=== PATIENT | female | born 1990 | race African-American/Black ===

== ENCOUNTER 2017-01-03 13:54 | Emergency (ER) | payer OTHER ==
[2017-01-03] MEDS ORDERED: PREDNISONE 20 MG TABLET PO ONE (14:08)
[2017-01-03] MEDS ORDERED: NORMAL SALINE 1000 ML 1,000 ML IV PRN (14:08)
[2017-01-03] MEDS ORDERED: DIPHENHYDRAMINE HCL 50 MG/ML VIAL IV ONE (14:08)
[2017-01-03] MEDS ORDERED: FAMOTIDINE INJ/PF 20 MG/2 ML SDV IV ONE (14:08)
--- NOTE | 2017-01-03 14:09 | ER Document Report ---
ED Allergic Reaction - General Chief Complaint: Allergic Reaction Stated Complaint: POSSIBLE ALLERGIC REACTION Time Seen by Provider: 01/03/17 14:04 Mode of Arrival: Ambulatory Information source: Patient TRAVEL OUTSIDE OF THE [place] IN LAST 30 DAYS: No - HPI Patient complains to provider of: Allergic reaction Onset: Just prior to arrival Onset/Duration: Gradual Quality of pain: No pain Identified cause: Yes Food exposure: Shellfish Skin rash / itching: Diffuse Similar symptoms previously: Yes Recently seen / treated by doctor: No Notes: Patient is a 26-year-old female with a fish allergy who presents to the emergency room complaining of diffuse itching consistent with an allergic reaction, states she was eating at a [employer] grill and although she did not eat fish she believes the food she ate was possibly contaminated with fish from the [place], she denies any difficulty swallowing or breathing - Related Data Allergies/Adverse Reactions: shellfish derived Allergy (Verified 01/03/17 14:05) Sulfa (Sulfonamide Antibiotics) Allergy (Verified 01/03/17 14:05) Past Medical History - General Information source: Patient - Social History Smoking Status: Never Smoker Chew tobacco use (# tins/day): No Frequency of alcohol use: None Drug Abuse: None Family History: Reviewed & Not Pertinent Patient has suicidal ideation: No Patient has homicidal ideation: No Pulmonary Medical History: Reports: Hx Asthma Renal/ Medical History: Denies: Hx Peritoneal Dialysis Past Surgical History: Reports: Hx Oral Surgery - Immunizations Hx Diphtheria, Pertussis, Tetanus Vaccination: No Review of Systems - Review of Systems Constitutional: No symptoms reported EENT: No symptoms reported Cardiovascular: No symptoms reported Respiratory: No symptoms reported Gastrointestinal: No symptoms reported Genitourinary: No symptoms reported Female Genitourinary: No symptoms reported Musculoskeletal: No symptoms reported Skin: See HPI Hematologic/Lymphatic: No symptoms reported Neurological/Psychological: No symptoms reported -: Yes All other systems reviewed and negative Physical Exam - Notes Notes: - General General appearance: Appears well, Alert In distress: None - HEENT Head: Normocephalic, Atraumatic Eyes: Normal Conjunctiva: Normal Extraocular movements intact: Yes Eyelashes: Normal Pupils: PERRL - Respiratory Respiratory status: No respiratory distress, lungs are clear to auscultation - Cardiovascular Rhythm: Regular - Abdominal Inspection: Normal - Back Back: Normal - Extremities General upper extremity: Normal inspection General lower extremity: Normal inspection - Neurological Neuro grossly intact: Yes Orientation: AAOx4 [place] Coma Scale Eye Opening: Spontaneous [place] Coma Scale Verbal: Oriented [place] Coma Scale Motor: Obeys Commands Brayan Coma Scale Total: 15 - Psychological Associated symptoms: Normal affect, Normal mood - Skin Skin Temperature: Warm Skin Moisture: Dry Skin Color: Normal - HEENT Pharynx: No: Erythema, Exudate, Tonsillar hypertrophy, Uvular edema, Potential airway comprom. Neck: Normal Course - Re-evaluation Re-evalutation: 01/03/17 14:46 Patient resting comfortably, no distress, reports feeling much better, physical exam findings unremarkable, patient will be discharged with prescriptions for symptomatic relief of allergic reaction, advised to return if symptoms worsen, patient acknowledges understanding and agreement with this plan Discharge - Discharge Clinical Impression: Acute allergic reaction Qualifiers: Encounter type: initial encounter Qualified Code(s): T78.40XA - Allergy, unspecified, initial encounter Condition: Stable Disposition: HOME, SELF-CARE Instructions: Acute Allergic Reaction ([facility]) Additional Instructions: Follow up with your primary care provider in one to 2 days. Return to the emergency room immediately if symptoms worsen or any additional concerns. Prescriptions: Diphenhydramine HCl [Benadryl 25 Mg Capsule] 25 mg PO Q6 #30 capsule Famotidine [Pepcid 20 mg Tablet] 20 mg PO BID #12 tablet Prednisone 40 mg PO DAILY #8 tablet
[2017-01-03 15:14] VITALS: BP 110/62
== END 2017-01-03 15:02 | disposition home or self-care (01) ==
LOC: ER 13:54
DX: L29.9 Pruritus, unspecified (principal); T78.40XA Allergy, unspecified, initial encounter; X58.XXXA Exposure to other specified factors, initial encounter; Z88.2 Allergy status to sulfonamides; Z91.013 Allergy to seafood
CPT/HCPCS: 96375; 99283; 96361; 96374; J1200; J7512; J7030; S0028

== ENCOUNTER 2017-02-28 14:23 | Emergency (ER) | payer OTHER ==
[2017-02-28] MEDS ORDERED: ONDANSETRON 4 MG TAB.RAPDIS PO ONE (14:46)
[2017-02-28] MEDS ORDERED: OXYCODONE-ACETAMINOPHEN 5-325 MG TABLET PO ONE (14:46)
--- NOTE | 2017-02-28 14:47 | ER Document Report ---
ED Medical Screen (RME) - General Chief Complaint: Pelvic Problem Stated Complaint: LOWER ABDOMINAL PAIN Time Seen by Provider: 02/28/17 14:41 Notes: Onset this morning of left pelvic pain quite severe. LMP last week normal on time. Has Mirena IUD. No other medications. I have greeted and performed a rapid initial assessment of this patient. A comprehensive ED assessment and evaluation of the patient, analysis of test results and completion of the medical decision making process will be conducted by additional ED providers. TRAVEL OUTSIDE OF THE [place] IN LAST 30 DAYS: No - Related Data Allergies/Adverse Reactions: shellfish derived Allergy (Verified 02/28/17 14:30) Sulfa (Sulfonamide Antibiotics) Allergy (Verified 02/28/17 14:30) Past Medical History Pulmonary Medical History: Reports: Hx Asthma Renal/ Medical History: Denies: Hx Peritoneal Dialysis Past Surgical History: Reports: Hx Oral Surgery - Immunizations Hx Diphtheria, Pertussis, Tetanus Vaccination: No Physical Exam - Vital signs Vitals: Temp Pulse Resp BP Pulse Ox 98.7 F 67 16 118/67 98 02/28/17 14:29 02/28/17 14:29 02/28/17 14:29 02/28/17 14:29 02/28/17 14:29 Course - Vital Signs Vital signs: Temp Pulse Resp BP Pulse Ox 98.7 F 67 16 118/67 98 02/28/17 14:29 02/28/17 14:29 02/28/17 14:29 02/28/17 14:29 02/28/17 14:29
[2017-02-28 15:08] LABS: APPEARANCE,URINE CLEAR; BILIRUBIN,URINE NEGATIVE (NEGATIVE); GLUCOSE, URINE NEGATIVE (NEGATIVE); KETONES,URINE NEGATIVE (NEGATIVE); LEUKOCYTE ESTERASE,URINE NEGATIVE (NEGATIVE); NITRITE,URINE NEGATIVE (NEGATIVE); PROTEIN,URINE NEGATIVE (NEGATIVE); UROBILINOGEN,URINE NEGATIVE mg/dL (<2.0)
--- NOTE | 2017-02-28 15:44 | ER Document Report ---
ED GI/ - General Chief Complaint: Pelvic Problem Stated Complaint: LOWER ABDOMINAL PAIN Time Seen by Provider: 02/28/17 14:41 Notes: The patient is a 26-year-old female, past medical history left ovarian cyst, presents with left-sided pelvic pain that lasted about 20 minutes, improved but still present for the next hour and has now subsided. She has had this in the past and was told that nothing was wrong at [employer]. She has a Mirena IUD in place. Denies vaginal bleeding, vaginal discharge, nausea, vomiting, diarrhea, flank pain, fevers, hematuria or dysuria. TRAVEL OUTSIDE OF THE [place] IN LAST 30 DAYS: No - Related Data Allergies/Adverse Reactions: shellfish derived Allergy (Verified 02/28/17 14:30) Sulfa (Sulfonamide Antibiotics) Allergy (Verified 02/28/17 14:30) Past Medical History - General Information source: Patient - Social History Smoking Status: Former Smoker Chew tobacco use (# tins/day): No Frequency of alcohol use: Social Drug Abuse: None Family History: Reviewed & Not Pertinent Pulmonary Medical History: Reports: Hx Asthma Renal/ Medical History: Denies: Hx Peritoneal Dialysis Psychiatric Medical History: Reports: Hx Depression Past Surgical History: Reports: Hx Oral Surgery - Immunizations Hx Diphtheria, Pertussis, Tetanus Vaccination: No Review of Systems - Review of Systems Notes: REVIEW OF SYSTEMS: CONSTITUTIONAL: -fevers, -chills EENT: -eye pain, -difficulty swallowing, -nasal congestion CARDIOVASCULAR:-chest pain, -syncope. RESPIRATORY: -cough, -SOB GASTROINTESTINAL: -abdominal pain, - nausea, -vomiting, -diarrhea GENITOURINARY: -dysuria, -hematuria, +left-sided pelvic pain MUSCULOSKELETAL: -back pain, -neck pain SKIN: -rash or skin lesions. HEMATOLOGIC: -easy bruising or bleeding. LYMPHATIC: -swollen, enlarged glands. NEUROLOGICAL: -altered mental status or loss of consciousness, -headache, - neurologic symptoms PSYCHIATRIC: -anxiety, -depression. ALL OTHER SYSTEMS REVIEWED AND NEGATIVE. Physical Exam - Vital signs Vitals: Temp Pulse Resp BP Pulse Ox 98.7 F 67 16 118/67 98 02/28/17 14:29 02/28/17 14:29 02/28/17 14:29 02/28/17 14:29 02/28/17 14:29 - Notes Notes: PHYSICAL EXAMINATION: GENERAL: Well-appearing, well-nourished and in no acute distress. HEAD: Atraumatic, normocephalic. EYES: Pupils equal round and reactive to light, extraocular movements intact, sclera anicteric, conjunctiva are normal. ENT: nares patent, oropharynx clear without exudates. Moist mucous membranes. NECK: Normal range of motion, supple without lymphadenopathy LUNGS: Breath sounds clear to auscultation bilaterally and equal. No wheezes rales or rhonchi. HEART: Regular rate and rhythm without murmurs ABDOMEN: Soft, nontender, normoactive bowel sounds. No guarding, no rebound. No masses appreciated. : Refused at this time. EXTREMITIES: Normal range of motion, no pitting or edema. No cyanosis. NEUROLOGICAL: Cranial nerves grossly intact. Normal speech, normal gait. Normal sensory and motor exams. PSYCH: Normal mood, normal affect. SKIN: Warm, Dry, normal turgor, no rashes or lesions noted. Course - Re-evaluation Re-evalutation: Patient appears very well and has absolutely no abdominal pain or tenderness. Her transvaginal ultrasound does not show any acute abnormalities and there is good blood flow to her ovaries. Not . With her history of left ovarian cyst, suspect that she may have had a cyst rupture that caused her pain. 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. Tylenol and Motrin for any pain relief. - Vital Signs Vital signs: Temp Pulse Resp BP Pulse Ox 98.7 F 67 16 118/67 98 02/28/17 14:29 02/28/17 14:29 02/28/17 14:29 02/28/17 14:29 02/28/17 14:29 - Diagnostic Test Radiology reviewed: Image reviewed, Reports reviewed Radiology results interpreted by me: TV US: NAD Discharge - Discharge Clinical Impression: Pelvic pain Condition: Stable Disposition: HOME, SELF-CARE Additional Instructions: ABDOMINAL PAIN: There are many causes of abdominal pain. Pain can mean a serious problem requiring surgery (such as appendicitis). It can also be an innocent problem that goes away on its own (such as a viral infection). Often, time must pass to determine the cause of pain. The physician does not feel that hospitalization is necessary, at present. Things may change within the next 24 hours. Call the doctor or come back for re- examination if any problems occur, such as: (1) Pain that becomes more severe, steady, or becomes concentrated in one specific area. Also, pain that is more severe with movement or coughing. (2) Vomiting that persists or becomes more frequent. (3) Blood in the vomitus, urine, or bowel movements. Blood in the stool may have a tarry or black appearance. (4) Shaking chills or fever greater than 100 degrees F. (5) The abdomen becomes more distended or swollen. (6) Bowel movements cease. (7) Failure to improve as expected. NORMAL EXAM AND WORKUP: At this time, your examination and workup show no significant abnormality. No significant abnormal physical findings are noted. All laboratory, EKG, and imaging (x-ray, CT scans, ultrasound) studies that were ordered show no significant abnormality. Although your examination and all studies that were ordered showed no significant abnormal finding, there are no examinations and no studies that are 100% accurate. There is always the possibility that some abnormality could exist and not be detected with physical examination or within the limits and capabilities of laboratory and other studies. You should return or follow up as you were instructed on your visit today for further evaluation if your symptoms do not resolve. ANTINAUSEA MEDICATION: You have been given a medication to suppress nausea and vomiting. This type of medication can be given as a shot, pill, or suppository. It will usually last for many hours. Pills and shots usually last six to eight hours, suppositories last about 12 hours. For the typical illness, only one or two doses of the medication may be necessary. Mild lightheadedness may occur. This type of medicine can cause drowsiness. Do not drive or operate dangerous machinery while under its influence. Do not mix with alcohol. See your doctor at once if you have muscle spasms or tightness, or uncontrollable motions (particularly of the neck, mouth, or jaw). Persistent vomiting or severe lightheadedness should also be evaluated by the physician. FOLLOW-UP CARE: If you have been referred to a physician for follow-up care, call the physician s office for an appointment as you were instructed or within the next two days. If you experience worsening or a significant change in your symptoms, notify the physician immediately or return to the Emergency Department at any time for re-evaluation. Referrals: AMI LOCKWOOD MD [ACTIVE STAFF] - Follow up as needed
--- NOTE | 2017-02-28 16:00 | RADIOLOGY REPORT (SQ) ---
EXAM DESCRIPTION: U/S NON-OB PELVIS TV W/O DOP COMPLETED DATE/TIME: 02/28/2017 3:39 pm REASON FOR STUDY: LLQ/pelvic pain COMPARISON: None. TECHNIQUE: Dynamic and static grayscale images acquired of the pelvis via transvaginal approach and recorded on PACS. Additional selected color Doppler and spectral images recorded. LIMITATIONS: None. FINDINGS: UTERUS: Contour normal. No mass. ENDOMETRIAL STRIPE: No focal or generalized thickening. No masses. IUD in the endometrial canal in g ood positioning. CERVIX: No nabothian cysts. RIGHT OVARY: No abnormal masses. Right ovary 2 x 1.4 x 1.2 cm in size. RIGHT OVARY DOPPLER: Normal arterial vascular flow without evidence for torsion. LEFT OVARY: No abnormal masses. Left ovary 2.5 x 1.5 x 1.2 cm in size, with a 7 mm follicle. LEFT OVARY DOPPLER: Normal arterial vascular flow without evidence for torsion. FREE FLUID: None noted. OTHER: No other significant finding. IMPRESSION: NORMAL TRANSVAGINAL PELVIC ULTRASOUND. TECHNICAL DOCUMENTATION: JOB ID: [id number] [employer]- All Rights Reserved
[2017-02-28 16:46] VITALS: BP 120/60
== END 2017-02-28 16:44 | disposition home or self-care (01) ==
LOC: ER 14:23
DX: R10.2 Pelvic and perineal pain (principal); Z87.42 Personal history of other diseases of the female genital tract; Z97.5 Presence of (intrauterine) contraceptive device; Z88.2 Allergy status to sulfonamides; Z91.013 Allergy to seafood; J45.909 Unspecified asthma, uncomplicated
CPT/HCPCS: 99284; 81025; 81001; 76830; S0119

== ENCOUNTER 2017-04-05 23:43 | Emergency (ER) | payer OTHER ==
[2017-04-06] MEDS ORDERED: MORPHINE SULFATE 10 MG/ML INJ IV ONE (01:29)
[2017-04-06] MEDS ORDERED: ONDANSETRON HCL INJ/PF 4 MG/2 ML SDV IV ONE (01:29)
--- NOTE | 2017-04-06 01:30 | ER Document Report ---
ED GI/ - General Chief Complaint: Abdominal Pain Stated Complaint: ABDOMINAL PAIN Time Seen by Provider: 04/06/17 00:38 Notes: Patient is a 26 year old female who presents to the ED complaining of RUQ pain. Patient states that she has chronic RUQ pain for the past ten years but more recently has had RUQ post prandial 3-4 times a week this past year. She states today he pain was more severe and lasting longer today then normal. She states she had normal right upper quadrant ultrasound approximately 9 months ago. Has since followed up with a GI since then who told her to have a low-fat diet. She has not followed up with him since. At this time she admits to right upper quadrant pain with associated nausea but denies any vomiting. He is having normal bowel movements without diarrhea. Past medical history significant for depression, anxiety. [employer] duty TRAVEL OUTSIDE OF THE [place] IN LAST 30 DAYS: No - Related Data Allergies/Adverse Reactions: shellfish derived Allergy (Verified 04/05/17 23:49) Sulfa (Sulfonamide Antibiotics) Allergy (Verified 04/05/17 23:49) Past Medical History - Social History Smoking Status: Former Smoker Family History: Reviewed & Not Pertinent Patient has suicidal ideation: No Patient has homicidal ideation: No Pulmonary Medical History: Reports: Hx Asthma Renal/ Medical History: Denies: Hx Peritoneal Dialysis Psychiatric Medical History: Reports: Hx Depression Past Surgical History: Reports: Hx Oral Surgery - Immunizations Hx Diphtheria, Pertussis, Tetanus Vaccination: No Review of Systems - Review of Systems Constitutional: No symptoms reported EENT: No symptoms reported Cardiovascular: No symptoms reported Respiratory: No symptoms reported Gastrointestinal: See HPI -: Yes All other systems reviewed and negative Physical Exam - Vital signs Vitals: Temp Pulse Resp BP Pulse Ox 98.9 F 79 18 130/65 H 98 04/05/17 23:49 04/05/17 23:49 04/05/17 23:49 04/05/17 23:49 04/05/17 23:49 - Notes Notes: PHYSICAL EXAM GENERAL: Alert, interacts well. LUNGS: Clear to auscultation bilaterally, no wheezes, rales, or rhonchi. No respiratory distress. HEART: Regular rate and rhythm. No murmurs, gallops, or rubs. ABDOMEN: Soft, nondistended, mild right upper quadrant tenderness with positive Cook's. No guarding, rebound, or rigidity.. Bowel sounds present in all 4 quadrants. EXTREMITIES: Moves all 4 extremities spontaneously. No edema, radial and dorsalis pedis pulses 2/4 bilaterally. No cyanosis. NEUROLOGICAL: Alert and oriented x4. Normal speech. PSYCH: Normal affect, normal mood. SKIN: Warm, dry, normal turgor. No rashes or lesions noted. Course - Re-evaluation Re-evalutation: 04/06/17 03:40 Patient is a 26-year-old female who is hemodynamically stable, no acute distress & afebrile. Presentation is consistent with biliary type pain with normal liver function, no evidence of common bile duct stones, cholelithiasis or inflamed gallbladder. Toelrating PO without difficulty. otherwise well hydrated female. Discussed with patient to continue low-fat diet and to follow- up with gastroenterology. Low clinical suspicion for any acute intra-abdominal cholecystitis, pancreatitis, appendicitis process given chronic history. Patient agrees with plan stable for discharge home - Vital Signs Vital signs: Temp Pulse Resp BP Pulse Ox 98.6 F 76 14 109/59 L 99 04/06/17 03:55 04/06/17 03:55 04/06/17 03:55 04/06/17 03:55 04/06/17 03:55 - Laboratory Result Diagrams: 04/06/17 00:20 04/06/17 00:20 Laboratory results interpreted by me: 04/06/17 04/06/17 00:20 00:20 Hgb 11.9 L MCH 26.2 L RDW 14.3 H Eosinophils % 8.7 H Absolute Eosinophils 0.7 H Carbon Dioxide 21 L BUN 6 L - Diagnostic Test Radiology reviewed: Reports reviewed Discharge - Discharge Clinical Impression: RUQ pain Condition: Good Disposition: HOME, SELF-CARE Instructions: Gallbladder Disease ([facility]), Low-Fat Diet ([facility]) Additional Instructions: [place] Prescriptions: Ondansetron [Zofran Odt 4 mg Tablet] 1 - 2 tab PO Q4H PRN #15 tab.rapdis PRN Reason: For Nausea/Vomiting Forms: Parent Work Note, Return to Work
[2017-04-06 01:36] LABS: ABSOLUTE BASOPHILS # (AUTO) 0.1 10^3/uL (0.0-0.2); ABSOLUTE EOSINOPHILS # (AUTO) 0.7 10^3/uL (0.0-0.6); ABSOLUTE LYMPHOCYTES (AUTO) 2.2 10^3/uL (0.5-4.7); ABSOLUTE MONOCYTES (AUTO) 0.7 10^3/uL (0.1-1.4); ABSOLUTE NEUT (AUTO) 4.3 10^3/uL (1.7-8.2); BASOPHILS % (AUTO) 0.8 % (0-2); EOSINOPHILS % (AUTO) 8.7 % (0-6); HEMATOCRIT 36.5 % (36.0-47.0); HEMOGLOBIN 11.9 g/dL (12.0-15.5); HGB HCT DIFFERENCE -0.8; LYMPHOCYTES % (AUTO) 28.3 % (13-45); MEAN CORPUSCULAR HEMOGLOBIN 26.2 pg (27.0-33.4); MEAN CORPUSCULAR HGB CONC 32.6 g/dL (32.0-36.0); MEAN CORPUSCULAR VOLUME 80 fl (80-97); MONOCYTES % (AUTO) 8.6 % (3-13); RED BLOOD COUNT 4.54 10^6/uL (3.72-5.28); RED CELL DISTRIBUTION WIDTH 14.3 % (11.5-14.0); SEGMENTED NEUTROPHILS % (AUTO) 53.6 % (42-78)
[2017-04-06] MEDS ORDERED: KETOROLAC TROMETHAMINE INJ/PF 30 MG/1 ML SDV IV ONE (02:15)
[2017-04-06 02:22] LABS: ALANINE AMINOTRANSFERASE 36 U/L (9-52); ALBUMIN 4.1 g/dL (3.5-5.0); ALKALINE PHOSPHATASE 61 U/L (38-126); ANION GAP 14 (5-19); ASPARTATE AMINO TRANSFERASE 30 U/L (14-36); BILIRUBIN,DIRECT 0.4 mg/dL (0.0-0.4); BILIRUBIN,TOTAL 0.9 mg/dL (0.2-1.3); BLOOD UREA NITROGEN 6 mg/dL (7-20); CARBON DIOXIDE 21 mmol/L (22-30); CHLORIDE 106 mmol/L (98-107); CREATININE RESULT 0.77 mg/dL (0.52-1.25); GLUCOSE 87 mg/dL (75-110); LIPASE 113.9 U/L (23-300); SODIUM 140.8 mmol/L (137-145); TOTAL PROTEIN 6.9 g/dL (6.3-8.2)
[2017-04-06 02:28] LABS: APPEARANCE,URINE CLEAR; BILIRUBIN,URINE NEGATIVE (NEGATIVE); GLUCOSE, URINE NEGATIVE (NEGATIVE); KETONES,URINE NEGATIVE (NEGATIVE); LEUKOCYTE ESTERASE,URINE NEGATIVE (NEGATIVE); NITRITE,URINE NEGATIVE (NEGATIVE); PROTEIN,URINE NEGATIVE (NEGATIVE); URINE SPECIFIC GRAVITY 1.012; UROBILINOGEN,URINE NEGATIVE mg/dL (<2.0)
--- NOTE | 2017-04-06 03:14 | RADIOLOGY REPORT (SQ) ---
EXAM DESCRIPTION: U/S ABDOMEN LIMITED W/O DOP COMPLETED DATE/TIME: 04/06/2017 2:55 am REASON FOR STUDY: RUQ pain with + murphys sign COMPARISON: None. TECHNIQUE: Grayscale images acquired of the abdomen and recorded on PACS. Additional selected color Doppler and spectral images recorded. LIMITATIONS: The patient ate 4 hours prior to the exam. FINDINGS: PANCREAS: Partially obscured by overlying bowel gas. The visualized pancreas in the midli ne is unremarkable. LIVER: Measures 12.9 cm. Echotexture normal. LIVER VASCULATURE: Normal directional flow of the main portal vein. GALLBLADDER: Contracted. No obvious shadowing stones. Normal wall thickness. No pericholecystic flui d. ULTRASOUND-DETECTED QUIROZ'S SIGN: Negative. INTRAHEPATIC DUCTS AND COMMON DUCT: CBD and intrahepatic ducts normal caliber. INFERIOR VENA CAVA: Patent. AORTA: No aneurysm in the visualized segments. RIGHT KIDNEY: Measures 8.6 cm in length. Normal echogenicity. No hydronephrosis. PERITONEAL AND RIGHT PLEURAL SPACE: No ascites or effusion. IMPRESSION: Contracted gallbladder with no definite evidence for gallstones. No biliary ductal dila tion. TECHNICAL DOCUMENTATION: JOB ID: [id number] [employer]- All Rights Reserved
[2017-04-06 04:15] VITALS: BP 109/59
== END 2017-04-06 03:50 | disposition home or self-care (01) ==
LOC: ER 23:43
DX: R10.11 Right upper quadrant pain (principal); Z88.2 Allergy status to sulfonamides; Z91.013 Allergy to seafood
CPT/HCPCS: 99284; 96374; 96375; 36415; 83690; 85025; 81025; 80053; 81001; 76705; J1885; J2270; J2405